=== PATIENT | female | born 1995 | race Caucasian/White ===

== ENCOUNTER 2019-08-23 22:52 | Emergency (ER) | payer BC ==
[~2019-08-23] VITALS: Ht 157.5 cm; Wt 79.0 kg
[2019-08-24] MEDS ORDERED: DIPHENHYDRAMINE 50MG/ML VIAL IV ONE (00:15)
[2019-08-24] MEDS ORDERED: DEXAMETHASONE 4MG/ML 1ML VIAL IV ONE (00:15)
[2019-08-24] MEDS ORDERED: FAMOTIDINE 20MG/2ML VIAL IV ONE (00:15)
[2019-08-24 01:08] VITALS: BP 112/57
== END 2019-08-24 03:39 | disposition home or self-care (01) ==
LOC: ER 22:52
DX: T78.40XA Allergy, unspecified, initial encounter (principal); X58.XXXA Exposure to other specified factors, initial encounter
CPT/HCPCS: 96374; 96375; 99284; J1100; J1200; J3490